=== PATIENT | male | born 2000 ===

== ENCOUNTER → 2020-08-24 | Outpatient (REF) | payer OTHER ==
[2020-08-24 10:40] LABS: SEMEN APPEARANCE OPAQUE (OPAQUE); SEMEN VISCOSITY LIQUID (LIQUID); SEMEN VOLUME 4.2 ml (2.0-5.0)
[2020-08-24 10:41] LABS: WBC CONCENTRATION <=1 M/ml (<=1 M/ml)
[2020-08-24 10:42] LABS: SPERM CONCENTRATION 93.3 M/ml (>=15.0)
== END ==
LOC: M LAB REF 10:35
PROVIDERS: ATTEND General Practice
DX: E29.1 Testicular hypofunction (principal)

== ENCOUNTER → 2021-09-04 | Outpatient (REF) | payer OTHER ==
[2021-09-05 16:01] LABS: SEMEN APPEARANCE OPAQUE (OPAQUE); SEMEN VISCOSITY LIQUID (LIQUID); SEMEN VOLUME 1.2 ml (2.0-5.0)
[2021-09-05 16:02] LABS: SPERM CONCENTRATION 35.1 M/ml (>=15.0); WBC CONCENTRATION <=1 M/ml (<=1 M/ml)
== END ==
LOC: M LAB REF 15:57
PROVIDERS: ATTEND Physician Assistant
DX: Z31.41 Encounter for fertility testing (principal)